=== PATIENT | female | born 1990 | race Two or more races ===

== ENCOUNTER 2017-03-07 18:57 | Emergency (ER) | payer SELFPAY ==
--- NOTE | 2017-03-07 19:15 | ED Physician Chart ---
Chief Complaint/HPI - Patient Information Date Seen:: 03/07/17 Time Seen:: 19:05 Chief Complaint:: Pt is here to request medication refills. History of Present Illness:: Pt has h/o bipolar disorder, PTSD, and anxiety. Pt has been out of her medications for at least 3 days. Pt denies any depressed mood. No H.I. or S.I. No auditory or visual hallucination. Pt overall feels well without subjective complaint. No bodily pain or discomfort. Allergies:: Allergies Allergy/AdvReac Type Severity Reaction Status Date / Time ketorolac [From Toradol] AdvReac Verified 03/07/17 19:10 Vitals:: see Nurse Note. Historian:: Patient Family MD/PCP:: Unknown. LMP:: 02/21/17 Review:: Nurse's Note Reviewed Review of Systems - Review of Systems General/Constitutional: No fever, No chills, No weight loss, No weakness, No diaphoresis, No edema, No loss of appetite Skin: No skin lesions, No rash, No bruising Head: No light-headedness Eyes: No loss of vision, No pain, No diplopia ENT: No earache, No nasal drainage, No sore throat, No tinnitus Neck: No neck pain, No swelling, No thyromegaly, No stiffness, No mass noted Cardio Vascular: No chest pain, No palpitations, No edema Pulmonary: No SOB, No cough, No wheezing GI: No nausea, No vomiting, No diarrhea, No pain G/U: No dysuria, No hematuria Physician Specialist: No vaginal discharge, No abnormal vaginal bleed Musculoskeletal: No bone or joint pain, No back pain, No muscle pain Psychiatric: Prior psych history, No depression, No anxiety, No suicidal ideation, No homicidal ideation, No auditory hallucination, No visual hallucination Hematopoietic: No bruising, No lymphadenopathy Allergic/Immuno: No urticaria, No angioedema Neurological: No syncope, No focal symptoms, No weakness, No paresthesia, No dizziness, No confusion Past Medical History - Past Medical History Past Medical History: Asthma/COPD Family History: Heart disease (PGF and PGM), Diabetes Melitus (father), Cancer ( daughter.) Social History: Smoker (1 ppd. Pt has been informed about health risks associated with chronic tobacco use and has been advised to quit. Pt has been encouraged to enroll in a smoking cessation program. Pt acknowledges understanding.), No Alcohol, No Drug Use, , Other (lives with her mother. ) Employment:: unemployed. Surgical History: None Psychiatricy History: Bipolar, Other (PTSD, anxiety disorder.) Medication: Reviewed Family Medical History - Family Member Mother History Unknown: Yes Physical Exam - Physical Examination General/Constitutional: Awake, Well-developed, well-nourished, Alert, No distress, GCS 15, Non-toxic appearing, Ambulatory Other Gen/Cons comments:: Breathes comfortably, speaks clearly, interacts normally, and ambulates without difficulty. Head: Atraumatic Eyes: Lids, conjuctiva normal, PERRL, EOMI Skin: Nl inspection, No rash, No skin lesions, No ecchymosis, Well hydrated, No lymphadenopathy ENMT: External ears, nose nl, Nasal exam nl, Lips, teeth, gums nl, Oropharynx nl Neck: Nontender, Full ROM w/o pain, No nuchal rigidity, No stridor Respiratory: Nl effort/Exclusion, Clear to Auscultation, No Wheeze/Rhonchi/Rales Cardio Vascular: RRR (HR 92), No murmur, gallop, rubs GI: No tenderness/rebounding/guarding, No organomegaly, Normal BS's, Nondistended Other GI comments:: Abdomen is soft. Extremities: No tenderness or effusion, Full ROM, normal strength in all extremities, No edema, Normal digits & nails Neuro/Psych: Alert/oriented (oriented x 3), Mood normal, Normal gait, No focal deficits Other Neuro/Psych comments:: Pt has normal affect. ED Septic Shock - . Is Septic Shock (SBP<90, OR Lactate>4 mmol\L) present?: No Reassessment (Disposition) - Reassessment Reassessment:: 1948 Pt is stable without any medical or psychiatric emergency. Discussed with pt at length. Pt will follow with her PCP and psychiatrist tomorrow for further evaluation/management. Aftercare instructions given. - Diagnosis Diagnosis:: H/O bipolar disorder, PTSD, and anxiety disorder. Stable. H/O asthma. Stable - Aftercare/Follow up Instructions Aftercare/Follow-Up Instructions:: Refer to Discharge Instructions Notes:: Continue present care. F/U with Dr. Escalera or PCP of pt's choice and Dr. Méndez, psychiatrist, in one day for recheck and further management. Return to ER immediately if condition worsens or if any further questions/ problems. Medication Prescribed:: None - Patient Disposition Discharge/Transfer:: Home Time:: 19:50 Condition at Disposition:: Stable ED Discharge Plan - Patient Disposition Admit/Discharge/Transfer: PT DISCHARGED HOME Condition at Disposition: Stable Instructions: Bipolar Disorder, Post-Traumatic Stress-Brief Additional Instructions: ADVICE PATIENT TO FOLLOW UP WITH HER PSYCHIATRIST FOR HER MEDICATION REFILL. RETURN TO ER IF CONDITION WORSEN.
== END 2017-03-07 19:50 | disposition home or self-care (01) ==
LOC: ER 18:57
DX: Z76.0 Encounter for issue of repeat prescription (principal); F31.9 Bipolar disorder, unspecified; J45.909 Unspecified asthma, uncomplicated; J44.9 Chronic obstructive pulmonary disease, unspecified; F17.200 Nicotine dependence, unspecified, uncomplicated; Z86.59 Personal history of other mental and behavioral disorders
CPT/HCPCS: Z7502

== ENCOUNTER 2017-10-03 22:07 | Emergency (ER) | payer MEDICAID ==
--- NOTE | 2017-10-03 23:36 | ED Physician Chart ---
ED Chief Complaint/HPI - Patient Information Date Seen:: 10/03/17 Time Seen:: 22:20 Chief Complaint:: "Boil" in the groin. History of Present Illness:: Brought in by private auto for the above reason. Pt states that she has had a painful lesion in R groin for about one week. No fever. No known injury. Pt has been taking po well without N/V/D. Allergies:: Allergies Allergy/AdvReac Type Severity Reaction Status Date / Time ketorolac [From Toradol] AdvReac Verified 10/03/17 22:50 Vitals:: Vital Signs - 8 hr 10/03/17 22:40 Temp 97.5 F HR 88 RR 16 BP 125/72 O2 Sat % 99 Historian:: Patient Family MD/PCP:: unknown LMP:: irregular. Review:: Nurse's Note Reviewed ED Review of Systems - Review of Systems General/Constitutional: No fever, No chills, No weight loss, No weakness, No edema Skin: No rash, No bruising Head: No headache, No light-headedness Eyes: No loss of vision, No pain, No diplopia ENT: No earache, No nasal drainage, No sore throat Neck: No neck pain, No stiffness Cardio Vascular: No chest pain, No palpitations Pulmonary: No SOB, No cough GI: No nausea, No vomiting, No diarrhea, No pain G/U: No dysuria, No frequency, No hematuria Digital Account Coordinator: No vaginal discharge, No abnormal vaginal bleed Musculoskeletal: No bone or joint pain Endocrine: Polyuria Psychiatric: Prior psych history, No depression, No suicidal ideation, No homicidal ideation Hematopoietic: No bruising, No lymphadenopathy Allergic/Immuno: No urticaria, No angioedema Neurological: No syncope, No focal symptoms, No weakness, No paresthesia, No headache, No dizziness, No confusion ED Past Medical History - Past Medical History Past Medical History: No significant medical hx Family History: None Social History: Smoker (Half pack daily. Pt has been informed about health risks associated with chronic tobacco use and has been advised to quit. Pt has been encouraged to enroll in a smoking cessation program. Pt acknowledges understanding.), No Alcohol, No Drug Use, , Other (lives with her mother.) Employment:: unemployed. Surgical History: None Psychiatricy History: Bipolar, Other (PTSD) Medication: Reviewed Family Medical History - Family Member Mother History Unknown: Yes ED Physical Exam - Physical Examination General/Constitutional: Awake, Well-developed, well-nourished (female), Alert, No distress, Non-toxic appearing, Ambulatory Head: Atraumatic Eyes: Lids, conjuctiva normal, PERRL, EOMI Other Skin comments:: R groin exam was performed in the presence of female staff member Heaven: There is an approx 1.5 cm indurated tender lesion in R groin region with minimal erythema. No open wound or flocculent center. No red streaking. ENMT: External ears, nose nl, Nasal exam nl, Oropharynx nl Neck: Nontender, Full ROM w/o pain, No nuchal rigidity, No mass, No stridor Respiratory: Nl effort/Exclusion, Clear to Auscultation, No Wheeze/Rhonchi/Rales Cardio Vascular: RRR, No murmur, gallop, rubs GI: No tenderness/rebounding/guarding, No organomegaly, No hernia, Normal BS's, Nondistended Neuro/Psych: Alert/oriented (oriented x 3), Mood normal, Normal gait, No focal deficits ED Labs/Radiology/EKG Results - Lab Results Results: Laboratory Tests 10/04/17 00:01 POC Ur Test Negative ED Septic Shock - . Is Septic Shock (SBP<90, OR Lactate>4 mmol\\L) present?: No - <6hrs of presentation: Vital Signs: Vital Signs - 8 hr 10/03/17 22:40 Temp 97.5 F HR 88 RR 16 BP 125/72 O2 Sat % 99 ED Reassessment (Disposition) - Reassessment Reassessment:: 0005 Pt feels better. Pt requests to go home now. Aftercare instructions have been given. Reassessment Condition:: Improved - Diagnosis Diagnosis:: Right groin abscess, not ready for I & D. Stable. - Aftercare/Follow up Instructions Aftercare/Follow-Up Instructions:: Refer to Discharge Instructions Notes:: Bactrim DS one tab po q12h for 10 days. D-20 R-0 May take Tylenol 500 mg tab one tab po q6h prn pain. Warm compress applied to affected area in right groin for 15 minutes q2h as directed. F/U with Dr. Whitehead or PCP of pt's choice in one day for recheck. Return to ER immediately if condition worsens or if any further questions/problems. Medication Prescribed:: Bactrim DS one tab po q12h for 10 days. D-20 R-0 - Patient Disposition Discharge/Transfer:: Home Time:: 00:10 Condition at Disposition:: Stable, Improved ED Discharge Plan - Patient Disposition Instructions: Abscess Additional Instructions: follow up with your primary medical doctor BRIANA take prescribed medications as ordered
[2017-10-04] MEDS ORDERED: Sulfamethoxazole/TMP 800/160mg Tab PO ONE (00:04)
[2017-10-04] MEDS ORDERED: Sulfamethoxazole/TMP 800/160mg Tab ONE (00:05)
== END 2017-10-04 00:10 | disposition home or self-care (01) ==
LOC: ER 22:07
DX: L02.214 Cutaneous abscess of groin (principal); F17.200 Nicotine dependence, unspecified, uncomplicated
CPT/HCPCS: 81025-TC; Z7502; Z7610

== ENCOUNTER 2018-01-18 11:05 | Emergency (ER) | payer MEDICAID ==
--- NOTE | 2018-01-18 11:59 | ED Physician Chart ---
ED Chief Complaint/HPI - Patient Information Date Seen:: 01/18/18 Time Seen:: 11:15 Chief Complaint:: Liza Removal History of Present Illness:: pt is a S/P 10 day Stapled Scalp Wound; pt denies any new trauma, LOC, N/V, decreased activity, visual or gait changes, H/As, S/T, neck pain, weakness, dizziness, paresthesias, vertigo, cough, C/P, SOB, Abd. Pain, A/N/V/D/C, VB, VD , bleeding, or any urinary s/s; pt's last tetanus shot: < 5 years; UTD; LNMP: ; pt deniies Allergies:: Allergies Allergy/AdvReac Type Severity Reaction Status Date / Time ketorolac [From Toradol] AdvReac Verified 10/03/17 22:50 Vitals:: Vital Signs - 8 hr 01/18/18 11:15 Temp 98.7 F HR 95 RR 16 BP 132/100 O2 Sat % 100 Historian:: Patient Review:: Nurse's Note Reviewed ED Review of Systems - Review of Systems General/Constitutional: No fever, No chills, No weight loss, No weakness, No diaphoresis, No edema, No loss of appetite Skin: No skin lesions, No rash, No bruising, Other (Scalp Wound) Head: No headache, No light-headedness Eyes: No loss of vision, No pain, No diplopia ENT: No earache, No nasal drainage, No sore throat, No tinnitus Neck: No neck pain, No swelling, No thyromegaly, No stiffness, No mass noted Cardio Vascular: No chest pain, No palpitations, No PND, No orthopnea, No edema Pulmonary: No SOB, No cough, No sputum, No wheezing GI: No nausea, No vomiting, No diarrhea, No pain, No melena, No hematochezia, No constipation, No hematemesis G/U: No dysuria, No frequency, No hematuria, No nacturia Lens Examiner: No vaginal discharge, No abnormal vaginal bleed, No contraction Musculoskeletal: No bone or joint pain, No back pain, No muscle pain Endocrine: No polyuria, No polydipsia Psychiatric: No prior psych history, No depression, No anxiety, No suicidal ideation, No homicidal ideation, No auditory hallucination, No visual hallucination Hematopoietic: No bruising, No lymphadenopathy Allergic/Immuno: No urticaria, No angioedema Neurological: No syncope, No focal symptoms, No weakness, No paresthesia, No headache, No seizure, No dizziness, No confusion, No vertigo ED Past Medical History - Past Medical History Obtainable: Yes Past Medical History: HTN Family History: HTN Social History: Non Smoker, No Alcohol, No Drug Use, Single, Homeless Surgical History: None Psychiatricy History: None Medication: Reviewed Family Medical History - Family Member Mother History Unknown: Yes ED Physical Exam - Physical Examination General/Constitutional: Awake, Well-developed, well-nourished, Alert, No distress, GCS 15, Non-toxic appearing, Ambulatory Head: Atraumatic Other Head comments:: Occipital Scalp Wound is healing well; no s/s of infection; good motor and sensory functions; good NV functions Eyes: Lids, conjuctiva normal, PERRL, EOMI Other Eyes comments:: PERRLA; Fundi: benign; EOMs: WNL Skin: Nl inspection, No rash, No skin lesions, No ecchymosis, Well hydrated, No lymphadenopathy Other Skin comments:: Occipital Scalp Stapled Wound is healing well; no s/s of wound infection ENMT: External ears, nose nl, TM canals nl, Nasal exam nl, Lips, teeth, gums nl , Oropharynx nl, Tonsils nl Other ENMT comments:: TMJs: WNL Neck: Nontender, Full ROM w/o pain, No JVD, No nuchal rigidity, No bruit, No mass, No stridor Other Neck comments:: supple; no meningeal signs; no cervical tenderness; no bruits Respiratory: Nl effort/Exclusion, Clear to Auscultation, No Wheeze/Rhonchi/Rales Cardio Vascular: RRR, No murmur, gallop, rubs, NL S1 S2, Carotid/Femoral/Distal pulses equal bilaterally GI: No tenderness/rebounding/guarding, No organomegaly, No hernia, Normal BS's, Nondistended, No mass/bruits, No McBurney tenderness Other GI comments:: no pulsatile masses; good BS : No CVA tenderness Other comments:: deferred by pt Extremities: No tenderness or effusion, Full ROM, normal strength in all extremities, No edema, Normal digits & nails Neuro/Psych: Alert/oriented, DTR's symmetric, Normal sensory exam, Normal motor strength, Judgement/insight normal, Mood normal, Normal gait, No focal deficits Other Neuro/Psych comments:: no focal signs Misc: Normal back, No paraspinal tenderness ED Assessment - Procedures Informed Consent: Procedure/risk/benefits explained by MD: Yes Liza #: 3 Comments:: Comlpete Removal of all 3 liaz; no complications; Wound cleansed with betadine and saline; Neosporin ointment applied ED Septic Shock - . Is Septic Shock (SBP<90, OR Lactate>4 mmol\L) present?: No - <6hrs of presentation: Vital Signs: Vital Signs - 8 hr // 11:15 Temp 98.7 F HR 95 RR 16 BP 132/100 O2 Sat % 100 ED Reassessment (Disposition) - Reassessment Reassessment:: pt is asymptomatic upon discharge Reassessment Condition:: Improved - Diagnosis Diagnosis:: Scalp Wound; Liza Removal; S/P 10 day Head Injury/Scalp Wound; Hypertension - Aftercare/Follow up Instructions Aftercare/Follow-Up Instructions:: Counseled pt regarding lab results/diagnosis & need follow up, Refer to Discharge Instructions, Counseled pt & family regarding lab results/diagnosis & need follow up - Patient Disposition Discharge/Transfer:: Home Condition at Disposition:: Stable, Improved (RTER prn if existing s/s reoccur and/or get worse and/or any other new s/s occur; ACIs given for all above Dx; Have Blood Pressure re-checked in one day; Wound Care Instructions; Have Wound re-checked in one day; ACIs given for all above Dx; Refer to Vascular Siurgeon/ Hospice Home Care Coordinator BRIANA; F/U with PMD in one day or prn; RTER prn if concerned) ED Discharge Plan - Patient Disposition Admit/Discharge/Transfer: PT DISCHARGED HOME Condition at Disposition: Stable Instructions: Staple Care and Removal Additional Instructions: Follow up with PCP in 24-48 hours. Return to ED if condition worsens.
== END 2018-01-18 11:30 | disposition home or self-care (01) ==
LOC: ER 11:05
DX: S01.00XA Unspecified open wound of scalp, initial encounter (principal); I10 Essential (primary) hypertension; Z88.8 Allergy status to other drugs, medicaments and biological substances; X58.XXXA Exposure to other specified factors, initial encounter; Y93.89 Activity, other specified; Y92.89 Other specified places as the place of occurrence of the external cause; Y99.8 Other external cause status
CPT/HCPCS: Z7502

== ENCOUNTER 2018-01-28 12:56 | Emergency (ER) | payer MEDICAID ==
[2018-01-28 14:28] LABS: % BASOPHILS 0.1 % (0.0-2.0); % EOSINOPHILS 1.1 % (0.0-5.0); % LYMPHOCYTES 27.3 % (20.0-50.0); % MONOCYTES 10.1 % (2.0-10.0); % NEUTROPHILS 61.4 % (40.0-80.0); EOSINOPHILE ABSOLUTE 0.1 Th/cmm (0.1-0.4); HEMATOCRIT 38.2 % (41.0-60); HEMOGLOBIN 13.2 gm/dL (12-16); LYMPHOCYTE ABSOLUTE 2.6 Th/cmm (1.5-3.0); MEAN CELL VOLUME 89.6 fl (81-100); MEAN CORPUSCULAR HEMOGLOBIN 31.1 pg (27.0-31.0); MEAN CORPUSCULAR HGB CONC 34.7 pg (28.0-36.0); MEAN PLATELET VOLUME 8.1 fl; PLATELET COUNT 331 Th/cmm (150-400); RED BLOOD COUNT 4.26 Mil/cmm (3.80-5.10); RED CELL DISTRIBUTION WIDTH 12.4 % (11.5-20.0); WHITE BLOOD COUNT 9.7 Th/cmm (4.8-10.8)
[2018-01-28 14:47] LABS: ALBUMIN 4.4 gm/dL (3.7-5.3); ALKALINE PHOSPHATASE 57 U/L (34-104); ANION GAP 16.9 (7.0-16.0); BILIRUBIN,TOTAL 0.5 mg/dL (0.3-1.0); BUN - UREA NITROGEN 25 mg/dL (7-25); CALCIUM SERUM 9.5 mg/dL (8.6-10.3); CHLORIDE 106 mEq/L (98-107); CREATININE - SERUM 1.4 mg/dL (0.6-1.2); GFR AFRICAN-AMERICAN 57.6 ml/min (>90); GFR NON AFRICAN-AMERICAN 47.6 ml/min; GLUCOSE 98 mg/dL (70-105); POTASSIUM SERUM 3.9 mEq/L (3.5-5.1); SGOT 28 U/L (13-39); SGPT/ALT 22 U/L (7-52); SODIUM SERUM 144 mEq/L (136-145); TOTAL PROTEIN,SERUM 6.6 gm/dL (6.0-8.3)
--- NOTE | 2018-01-28 15:42 | ED Physician Chart ---
ED Chief Complaint/HPI - Patient Information Date Seen:: 01/28/18 Time Seen:: 15:42 Chief Complaint:: Altered mental status History of Present Illness:: 27 yo homeless female with history of seizure, was brought by ambulance to ER because patient was noticed wandering in the neighborhood. Patient stated that she took excess of anti-anxiety medication today and was let out by her friends to fend for herself. At ER, patient is somnolent but easily arousable. Patient stated some occipital headache where she had a recent occipital laceration wound which was well healed. Patient also stated that she lost prescription of ambien, xanax and seroquel from [facility] 3 days ago. She is taking Keppra 500mg bid for her seizure. Allergies:: Allergies Allergy/AdvReac Type Severity Reaction Status Date / Time ketorolac [From Toradol] AdvReac Verified 10/03/17 22:50 Vitals:: Vital Signs - 8 hr 01/28/18 13:29 Temp 98.1 F HR 101 RR 17 BP 102/53 O2 Sat % 95 <Trini Mcrae - Last Filed: 01/28/18 18:51> - Patient Information Allergies:: Allergies Allergy/AdvReac Type Severity Reaction Status Date / Time ketorolac [From Toradol] AdvReac Verified 10/03/17 22:50 Historian:: Patient Review:: Nurse's Note Reviewed <Reilly Nunez - Last Filed: 01/29/18 20:58> ED Review of Systems - Review of Systems General/Constitutional: No fever, No chills Skin: Skin lesions Head: Headache Eyes: No pain ENT: No nasal drainage Neck: No neck pain Cardio Vascular: No chest pain Pulmonary: No SOB GI: No nausea, No vomiting Musculoskeletal: No bone or joint pain Psychiatric: Anxiety Neurological: No focal symptoms <Trini Mcrae - Last Filed: 01/28/18 18:51> - Review of Systems General/Constitutional: No fever, No edema Skin: No bruising Head: Headache Eyes: No pain ENT: No nasal drainage Neck: No neck pain Cardio Vascular: No chest pain Pulmonary: No SOB GI: No vomiting G/U: No dysuria Musculoskeletal: No bone or joint pain Endocrine: No polyuria Psychiatric: Anxiety Hematopoietic: No bruising Allergic/Immuno: No urticaria Neurological: Seizure (hx of seizure with, prescribed kepra ) <Reilly Nunez Last Filed: 01/29/18 20:58> ED Past Medical History - Past Medical History Past Medical History: HTN, DM, Seizures Social History: Smoker, Alcohol, Illicit Drug Use (methamphetamine) Psychiatricy History: Other (Anxiety) <Trini Mcrae Last Filed: 01/28/18 18:51> - Past Medical History Obtainable: Yes Past Medical History: Other (Hx of seizures) Social History: Illicit Drug Use Psychiatricy History: Other Medication: Reviewed <Reilly Nunez Last Filed: 01/29/18 20:58> Family Medical History - Family Member Mother History Unknown: Yes <Trini Mcrae Last Filed: 01/28/18 18:51> - Family Member Mother History Unknown: Yes <Reilly Nunez Last Filed: 01/29/18 20:58> ED Physical Exam - Physical Examination General/Constitutional: Awake, Well-developed, well-nourished, Ambulatory Skin: Well hydrated ENMT: External ears, nose nl Neck: Nontender Respiratory: Nl effort/Exclusion GI: No tenderness/rebounding/guarding : No CVA tenderness Extremities: No tenderness or effusion Neuro/Psych: Alert/oriented Misc: Normal back <Reilly Nunez Last Filed: 01/29/18 20:58> ED Labs/Radiology/EKG Results - Lab Results Results: Laboratory Tests 01/28/18 01/28/18 01/28/18 13:40 14:20 14:20 WBC 9.7 RBC 4.26 Hgb 13.2 Hct 38.2 L MCV 89.6 MCH 31.1 H MCHC Differential 34.7 RDW 12.4 Plt Count 331 MPV 8.1 Neutrophils % 61.4 Lymphocytes % 27.3 Monocytes % 10.1 H Eosinophils % 1.1 Basophils % 0.1 Sodium 144 Potassium 3.9 Chloride 106 Carbon Dioxide 25.0 Anion Gap 16.9 H BUN 25 Creatinine 1.4 H Est GFR ( Amer) 57.6 Est GFR (Non-Af Amer) 47.6 BUN/Creatinine Ratio 17.9 Glucose 98 POC Glucose 101 Calcium 9.5 Total Bilirubin 0.5 AST 28 ALT 22 Alkaline Phosphatase 57 Total Protein 6.6 Albumin 4.4 Globulin 2.2 Albumin/Globulin Ratio 2.0 H Ethyl Alcohol < 10 <Trini Mcrae - Last Filed: 01/28/18 18:51> - Lab Results Results: Laboratory Tests 01/28/18 01/28/18 01/28/18 13:40 14:20 14:20 WBC 9.7 RBC 4.26 Hgb 13.2 Hct 38.2 L MCV 89.6 MCH 31.1 H MCHC Differential 34.7 RDW 12.4 Plt Count 331 MPV 8.1 Neutrophils % 61.4 Lymphocytes % 27.3 Monocytes % 10.1 H Eosinophils % 1.1 Basophils % 0.1 Sodium 144 Potassium 3.9 Chloride 106 Carbon Dioxide 25.0 Anion Gap 16.9 H BUN 25 Creatinine 1.4 H Est GFR ( Amer) 57.6 Est GFR (Non-Af Amer) 47.6 BUN/Creatinine Ratio 17.9 Glucose 98 POC Glucose 101 Calcium 9.5 Total Bilirubin 0.5 AST 28 ALT 22 Alkaline Phosphatase 57 Total Protein 6.6 Albumin 4.4 Globulin 2.2 Albumin/Globulin Ratio 2.0 H Ethyl Alcohol < 10 <Reilly Nunez - Last Filed: 01/29/18 20:58> ED Assessment - Assessment General Assessment: Altered mental status Substance abuse Assessment/Comments:: CBC, CMP, UA, urine drug screen NS 1L IV bolus <Trini Mcrae - Last Filed: 01/28/18 18:51> - Assessment General Assessment: Social problem with people at home residence. Medication reportedly taken from her by roommates. Pt reported she took sleeping pills and benadryl, slept for 8 hours in ER. Patient woke up, denied suicide ideation. Requested xanax and ambien, denied request. Patient became aggressive and verbally abusive, stated she would go to different hospital and walked out of ER. This condition life threatening/high prob of deterioration: No <Reilly Nunez - Last Filed: 01/29/18 20:58> ED Septic Shock - . Is Septic Shock (SBP<90, OR Lactate>4 mmol\L) present?: No - <6hrs of presentation: Vital Signs: Vital Signs - 8 hr 01/28/18 13:29 Temp 98.1 F HR 101 RR 17 BP 102/53 O2 Sat % 95 <Trini Mcrae - Last Filed: 01/28/18 18:51> - . Is Septic Shock (SBP<90, OR Lactate>4 mmol\L) present?: No <Reilly Nunez - Last Filed: 01/29/18 20:58> ED Reassessment (Disposition) - Reassessment Reassessment Condition:: Improved <Trini Mcrae - Last Filed: 01/28/18 18:51> - Reassessment Reassessment:: Patient had social problems with housemates, came to hospital requesting ambien and xanax. Reported taking benadryl, slept for 8 hours in ER. Denied suicidal ideation. Reassessment Condition:: Improved - Diagnosis Diagnosis:: Somnolence drug induced with request for further hypnotic pill availability, refusal to listen to medical advice. - Patient Disposition Discharge/Transfer:: Home <Reilly Nunez - Last Filed: 01/29/18 20:58>
== END 2018-01-28 20:20 | disposition home or self-care (01) ==
LOC: ER 12:56
DX: F13.10 Sedative, hypnotic or anxiolytic abuse, uncomplicated (principal); F41.9 Anxiety disorder, unspecified; R51 Headache; R41.82 Altered mental status, unspecified; Z88.8 Allergy status to other drugs, medicaments and biological substances
CPT/HCPCS: 36415-UA; 80053-TC; 80299-90; 80320-TC; 82948-90; 85025-TC; J7030; Z7502